=== PATIENT | male | born 1940 | race Caucasian/White ===

== ENCOUNTER 2019-01-15 12:56 | Emergency (ER) | payer OTHER ==
[~2019-01-15] VITALS: Ht 167.6 cm; Wt 83.9 kg
[2019-01-15 13:20] VITALS: BP 115/59
[2019-01-15] MEDS ORDERED: KETOROLAC 30 MG/ML VIAL. IM STA (15:19)
--- NOTE | 2019-01-15 15:27 | PHYS DOC ---
Past Medical History Past Medical History: High Cholesterol Past Surgical History: Knee Replacement Additional Past Surgical Histo: cardiac stents Alcohol Use: Occasionally Drug Use: None Adult General Chief Complaint Chief Complaint: LOWEREXTREMITY INJURY HPI HPI Patient is a 78 year old male that presents with left lower extremity pain that has been ongoing since Wednesday. The patient states he was pushing a trailer and felt some snap in the posterior portion of his calf. Rates the pain is 1 out of 10 when he is laying there however when he tries to put weight on it shoots up to 8 out of 10 in severity. Review of Systems Review of Systems Constitutional: Denies fever or chills [] Eyes: Denies change in visual acuity, redness, or eye pain [] HENT: Denies nasal congestion or sore throat [] Respiratory: Denies cough or shortness of breath [] Cardiovascular: No additional information not addressed in HPI [] GI: Denies abdominal pain, nausea, vomiting, bloody stools or diarrhea [] : Denies dysuria or hematuria [] Musculoskeletal: Reports L calf pain. Integument: Denies rash or skin lesions [] Neurologic: Denies headache, focal weakness or sensory changes [] Endocrine: Denies polyuria or polydipsia [] Complete systems were reviewed and found to be within normal limits, except as documented in this note. Current Medications Current Medications Current Medications Medications (Trade) Dose Ordered Sig/Dev Start Time Stop Time Status Last Admin Dose Admin Ketorolac Tromethamine (Toradol 30mg Vial) 30 mg 1X STAT 01/15/19 15:19 01/15/19 15:20 DC Allergies Allergies Allergies Coded Allergies Type Severity Reaction Last Updated Verified No Known Drug Allergies 01/15/19 No Physical Exam Physical Exam Constitutional: Well developed, well nourished, no acute distress, non-toxic appearance. [] HENT: Normocephalic, atraumatic, bilateral external ears normal, oropharynx moist, no oral exudates, nose normal. [] Eyes: PERRLA, EOMI, conjunctiva normal, no discharge. [] Neck: Normal range of motion, no tenderness, supple, no stridor. [] Cardiovascular:Heart rate regular rhythm, no murmur [] Lungs & Thorax: Bilateral breath sounds clear to auscultation [] Abdomen: Bowel sounds normal, soft, no tenderness, no masses, no pulsatile masses. [] Skin: Warm, dry, no erythema, no rash. [] Back: No tenderness, no CVA tenderness. [] Extremities: Edema and tenderness to L calf, leg is yellow in color, + Pérez test. Neurologic: Alert and oriented X 3, normal motor function, normal sensory function, no focal deficits noted. [] Psychologic: Affect normal, judgement normal, mood normal. [] Current Patient Data Vital Signs Vital Signs Date Time Temp Pulse Resp B/P (MAP) Pulse Ox O2 Delivery O2 Flow Rate FiO2 01/15/19 13:20 97.7 56 20 115/59 (77) 96 Room Air 97.7 EKG EKG [] Radiology/Procedures Radiology/Procedures [][facility] [address] [place] [place] [address] IMAGING REPORT Signed PATIENT: ADELFO RUIZ ACCOUNT: [id number] : 1940 LOCATION: ER AGE: 78 SEX: M EXAM STATUS: REG ER ORD. PHYSICIAN: COURTNEY VALADEZ APRN REASON: left lower leg pain FROM TRAILER ACCIDENT PROCEDURE: TIBIA FIBULA LEFT AP and lateral left tibia and fibula radiographs 01/15/2019 CLINICAL HISTORY: Left leg pain post injury. AP and lateral digital radiographs left tibia and fibula were obtained. No fracture or dislocation is seen. No radiopaque foreign body is noted. IMPRESSION: No fracture or dislocation of the left tibia or fibula is seen. Electronically signed by: Carloz Zheng MD (01/15/2019 3:41 PM) [facility] DICTATED and SIGNED BY: CARLOZ ZHENG MD DATE: 01/15/19 1541 Course & Med Decision Making Course & Med Decision Making Pertinent Labs and Imaging studies reviewed. (See chart for details) Discussed case with Dr. Tan. I suspect Achilles Tendon Rupture. Will get X- ray as requested and have follow up in clinic. Will have patient splinted and crutches. Dragon Disclaimer Dragon Disclaimer This electronic medical record was generated, in whole or in part, using a voice recognition dictation system. Departure Departure Impression: Primary Impression: Rupture Achilles tendon Disposition: 01 HOME, SELF-CARE Condition: STABLE Referrals: JENNIFER ROOT (PCP) LIVE TAN II, MD Patient Instructions: Achilles Tendon Rupture (Complete) Additional Instructions: Thank you for visiting [facility]. We appreciate you trusting us with your care. If any additional problems come up don't hesitate to return to visit us. Please follow up with your primary care provider so they can plan additional care if needed and know about the problem that you had. If symptoms worsen come back to the Emergency Department. Any concerning symptoms that start such as chest pain, shortness of air, weakness or numbness on one side of the body, running high fevers or any other concerning symptoms return to the ER. Please follow up with Dr. Tan this week. Please fill your medications at any pharmacy and follow the prescription instructions. Scripts Ondansetron (ONDANSETRON ODT) 4 Mg Tab.rapdis 1 TAB PO PRN Q6-8HRS PRN for NAUSEA, #16 TAB Prov: COURTNEY VALADEZ APRN 01/15/19 Hydrocodone/Apap 5-325 (NORCO 5-325 TABLET) 1 Each Tablet 1 TAB PO PRN Q6HRS PRN for PAIN for 3 Days, #10 TAB 0 Refills Prov: COURTNEY VALADEZ APRN 01/15/19 Problem Qualifiers Primary Impression: Rupture Achilles tendon Encounter type: initial encounter Laterality: left Qualified Codes: S86.012A - Strain of left Achilles tendon, initial encounter COURTNEY VALADEZ APRN Jan 15, 2019 15:27
--- NOTE | 2019-01-15 15:44 | RAD ---
AP and lateral left tibia and fibula radiographs 01/15/2019 CLINICAL HISTORY: Left leg pain post injury. AP and lateral digital radiographs left tibia and fibula were obtained. No fracture or dislocation is seen. No radiopaque foreign body is noted. IMPRESSION: No fracture or dislocation of the left tibia or fibula is seen. Electronically signed by: Carloz Zheng MD (01/15/2019 3:41 PM) [facility]
[2019-01-15] MEDS ORDERED: HYDR-3164 PO (15:52)
[2019-01-15] MEDS ORDERED: ONDA4TAB12 PO (15:53)
[2019-01-19] MEDS ORDERED: ASPI-630 PO (19:20)
[2019-01-19] MEDS ORDERED: MULT1TAB52 PO (19:21)
[2019-01-19] MEDS ORDERED: CITA20TA6 PO (19:21)
[2019-01-19] MEDS ORDERED: TRAZ-118 PO (19:23)
[2019-01-19] MEDS ORDERED: LIPITOR80 MG PO (19:24)
[2019-01-19] MEDS ORDERED: LOVA20TA2 PO (19:24)
[2019-01-19] MEDS ORDERED: IBUP200C9 PO (19:27)
[2019-01-20] MEDS ORDERED: OXYC1TAB15 PO (17:23)
== END 2019-01-15 16:50 | disposition home or self-care (01) ==
LOC: ER 12:56
DX: S86.012A Strain of left Achilles tendon, initial encounter (principal); E78.00 Pure hypercholesterolemia, unspecified; Z96.659 Presence of unspecified artificial knee joint; X50.9XXA Other and unspecified overexertion or strenuous movements or postures, initial encounter; Y93.89 Activity, other specified; Y92.89 Other specified places as the place of occurrence of the external cause; Y99.8 Other external cause status
CPT/HCPCS: 73590; 96372; 99284; J1885

== ENCOUNTER 2019-01-20 10:27 | Day surgery (SDC) | payer OTHER ==
[~2019-01-20 10:27] MED LIST: ASPI-630 PO; CITA20TA6 PO; HYDR-3164 PO; HYDROmorphone 2 MG/ML VIAL IV PRN; IBUP200C9 PO; IV RINGERS,LACTATED 1000ML 1,000 ML IV SCH; LIDOCAINE 1% PF 2 ML VIAL. ID PRN; LIPITOR80 MG PO; LOVA20TA2 PO; MORPHINE SULFATE 2 MG/ML VIAL. IV PRN; MULT1TAB52 PO; ONDA4TAB12 PO; ONDANSETRON PF 4 MG/2 ML VIAL. IV PRN; PROCHLORPERAZINE 10 MG/2 ML VIAL. IV PRN; TRAZ-118 PO; fentaNYL PF VIAL 100 MCG/2 ML VIAL IV PRN
[2019-01-20 11:37] LABS: BASO % 0 % (0-3); EOS # 0.3 x10^3/uL (0.0-0.7); EOS % 5 % (0-3); HEMATOCRIT 41.1 % (39.0-53.0); LYMPH # 1.1 x10^3/uL (1.0-4.8); LYMPH % 17 % (24-48); MEAN CORPUSCULAR HEMOGLOBIN 33 pg (25-35); MEAN CORPUSCULAR HGB CONC 34 g/dL (31-37); MEAN CORPUSCULAR VOLUME 97 fL (79-100); MONO # 0.5 x10^3/uL (0.0-1.1); MONO % 9 % (0-9); NEUT # 4.4 x10^3/uL (1.8-7.7); NEUT % 69 % (31-73); PLATELET COUNT 183 x10^3/uL (140-400); RED BLOOD COUNT 4.25 x10^6/uL (4.30-5.70); RED CELL DISTRIBUTION WIDTH 13.6 % (11.5-14.5); WHITE BLOOD COUNT 6.3 x10^3/uL (4.0-11.0)
[2019-01-20 11:42] LABS: CALCIUM 9.3 mg/dL (8.5-10.1); CREATININE 0.8 mg/dL (0.7-1.3); GFR 93.3; POTASSIUM 4.1 mmol/L (3.5-5.1)
--- NOTE | 2019-01-20 11:46 | EKG ---
[facility] [address] [place] [address] Test Date: 2019-01-20 Test Time: 11:50:54 Pat Name: ADELFO PAIN Department: Room: Gender: It Consultant: : 1940 Requested By: JULIETA RAMIREZ Order Number: [id number] Reading MD: Measurements Intervals [place] Rate: 50 P: 36 ME: 188 QRS: -15 QRSD: 82 T: 32 QT: 436 QTc: 400 Interpretive Statements SINUS RHYTHM LEFTWARD AXIS QRS(T) CONTOUR ABNORMALITY CONSIDER ANTEROSEPTAL MYOCARDIAL DAMAGE POSSIBLY ABNORMAL ECG RI6.01 No previous ECG available for comparison
[2019-01-20] MEDS ORDERED: ROCURONIUM 50 MG/5 ML VIAL. ONE (13:50)
[2019-01-20] MEDS ORDERED: ONDANSETRON PF 4 MG/2 ML VIAL. ONE (13:50)
[2019-01-20] MEDS ORDERED: FAMOTIDINE 20 MG/2 ML VIAL ONE (13:50)
[2019-01-20] MEDS ORDERED: PROPOFOL 20 ML IV ONE (13:50)
[2019-01-20] MEDS ORDERED: LIDOCAINE 2% PF 5 ML VIAL. ONE (13:50)
[2019-01-20] MEDS ORDERED: fentaNYL PF VIAL 100 MCG/2 ML VIAL ONE (13:50)
[2019-01-20] MEDS ORDERED: DEXAMETHASONE SOD PHOS 4 MG/ML VIAL ONE (13:50)
[2019-01-20] MEDS ORDERED: ePHEDrine PF IN SALINE 50 MG/10 ML SYRINGE. IV ONE (16:13)
[2019-01-20] MEDS ORDERED: NEOSTIGMINE METHYLSULFATE 5 MG/5 ML SYRINGE. ONE (16:38)
[2019-01-20] MEDS ORDERED: GLYCOPYRROLATE 1 MG/5 ML VIAL. ONE (16:38)
[2019-01-20] MEDS ORDERED: SEVOFLURANE 61 TO 120 MINUTES. IH ONE (16:40)
[2019-01-20] MEDS ORDERED: OXYC1TAB15 PO (17:23)
--- NOTE | 2019-01-20 17:28 | DISCH ---
DISCHARGE INSTRUCTIONS Condition on Discharge Condition on Discharge: Stable Activity After Discharge Activity Instructions for Disc: Activity as tolerated (nonweightbearing left leg in splint with crutches or walker as needed) Weight Bearing Status after Di: Non weight bearing Diet after Discharge Diet after Discharge: Regular Wound Incision Care Wound/Incision Care: Ice to area for comfort, Keep wound elevated, Do not change dressing Contacting the after DC Call your doctor for: Concerns you may have Follow-Up Follow up with: Dr. Wagoner 10 days JULIETA WAGONER MD Jan 20, 2019 17:28
[2019-01-20 17:30] VITALS: BP 168/90
[2019-01-20] MEDS ORDERED: oxyCODONE/APAP 5/325 1 TAB TABLET PO ONE (17:30)
--- NOTE | 2019-01-20 18:53 | PDOC4 ---
Operative Note Operative Note Date of surgery: 01/20/2019 Preoperative diagnosis: Left Achilles rupture Postoperative diagnosis same, and watershed area proximal to insertion Operative procedure: Left Achilles repair Surgeon: Ciaran Anesthesia: Gen. Estimated blood loss: 20 mL Complications: None Tourniquet time: Approximately 50 minutes Operative indications: Please see my preoperative clinic note for detailed operative indications noting patient sustained a Achilles full-thickness injury was evaluated in the emergency department subsequently by me in clinic and remains in a splint. We have talked about operative and nonoperative treatment options the rerupture rate being lower the upper give treatment situation and the possibility of infection nerve or blood vessel damage nonhealing in either case and the typical postoperative course and need for protection and rationale for restrictions. All his questions were answered he wishes to proceed with surgical evaluation and treatment. Operative text: Patient was identified procedure verified patient placed in the supine position on the stretcher and after adequate amounts of general anesthesia were administered he was placed in the prone position and all bony prominences were well-padded and the left lower extremity was prepped and draped in standard sterile fashion with a thigh tourniquet. After timeout was performed patient procedure identified and verified the left lower extremity was exsanguinated by Esmarch bandage tourniquet inflated to 250 mmHg and the incision was made just medial to the midline dissection carried out proximally and distally to the rupture site and the tendon sheath was incised noting a full-thickness rupture. After thorough irrigation carried out normal saline solution a total of 6 strands of suture were used and a grasping fashion with #5 Ethibond across the rupture site which was pulled together very nicely and reinforced with Ethibond suture additionally with another 4 strands across the repair site which was supplemented by Vicryl suture in a circumferential manner. Thorough irrigation carried out normal saline solution and Tendon sheath was repaired with Vicryl suture subcutaneous closure with buried Vicryl skin closure with marti a well-padded posterior splint was applied with sterile dressings and finally an Julien wrap toes were noted be warm pink find deflation of sanket rniquet after a total tourniquet time of approximately 50 minutes patient was returned recovery room in stable condition having tolerated procedure well JULIETA RAMIREZ MD Jan 20, 2019 18:53
== END 2019-01-20 18:10 | disposition home or self-care (01) ==
LOC: SURG 10:27
PROVIDERS: ATTEND Orthopaedic Surgery
DX: S86.012A Strain of left Achilles tendon, initial encounter (principal); I10 Essential (primary) hypertension; Z79.899 Other long term (current) drug therapy; Z72.89 Other problems related to lifestyle; Z96.651 Presence of right artificial knee joint; X58.XXXA Exposure to other specified factors, initial encounter; Y93.89 Activity, other specified; Y92.89 Other specified places as the place of occurrence of the external cause; Y99.8 Other external cause status; Z88.8 Allergy status to other drugs, medicaments and biological substances
CPT/HCPCS: 27650; 36415; 80048; 85025; 93005; J0171; J0696; J1100; J2001; J2405; J2704; J2710; J3010; J3490